=== PATIENT | male | born 1960 | race Two or more races ===

== ENCOUNTER → 2024-07-15 | Outpatient (CLI) | payer BC, SELFPAY ==
[2024-07-15 12:37] LABS: Prostate Specific Antigen < 0.10 ng/mL (0-4.00)
== END | disposition home or self-care (01) ==
LOC: COPL 10:57
PROVIDERS: PCP Nurse Practitioner Family; Referring Provider Urology; Visit Provider Urology
DX: C61 Malignant neoplasm of prostate (principal)
CPT/HCPCS: 36415; 84153

== ENCOUNTER → 2024-07-20 | Outpatient (BNVA) | payer BC, SELFPAY | END | disposition home or self-care (01) | PROVIDERS: PCP Nurse Practitioner Family; Referring Provider Nurse Practitioner Family; Visit Provider Urology | DX: C61 Malignant neoplasm of prostate (principal); N39.46 Mixed incontinence; N52.9 Male erectile dysfunction, unspecified; E11.9 Type 2 diabetes mellitus without complications; I10 Essential (primary) hypertension; E66.01 Morbid (severe) obesity due to excess calories; Z68.42 Body mass index [BMI] 45.0-49.9, adult; F17.290 Nicotine dependence, other tobacco product, uncomplicated | CPT/HCPCS: 99212; G0463 ==

== ENCOUNTER → 2024-09-04 | Outpatient (CLI) | payer BC, SELFPAY ==
[2024-09-04 13:14] LABS: B-Type Natriuretic Peptide < 20 pg/mL (0-100)
== END | disposition home or self-care (01) ==
PROVIDERS: PCP Nurse Practitioner Family; Referring Provider Internal Medicine Cardiovascular Disease; Visit Provider Internal Medicine Cardiovascular Disease
DX: I10 Essential (primary) hypertension (principal); I49.9 Cardiac arrhythmia, unspecified; E13.9 Other specified diabetes mellitus without complications; J45.20 Mild intermittent asthma, uncomplicated
CPT/HCPCS: 36415; 83880

== ENCOUNTER 2024-11-14 16:13 | Emergency (ER) | payer BC, SELFPAY ==
[2024-11-14 16:22] VITALS: BP 157/84; PULSE 135; RESP 24; TEMP 36.8; O2SAT 95
--- NOTE | 2024-11-14 16:29 | XR_ITS ---
Examination: AP chest single view Technique one AP portable upright chest single view Exam date and time: November 14, 2024 at 1651 hrs. Comparison January 04, 2008 Indication: Shortness of breath chest pain beginning 3 days ago. Findings: Early bibasilar pneumonia. No significant cardiac enlargement No pulmonary edema The osseous structures are intact Impression: Early bibasilar pneumonia.
--- NOTE | 2024-11-14 16:29 | EKG_ITS ---
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
--- NOTE | 2024-11-14 16:29 | PD.EDRME ---
Rapid Medical Screening Exam RME Arrival date/time: 11/14/24 16:13 CC: Palpitations and escalating blood pressure HPI patient noticed this approximately 2 to 3 hours ago. Patient denies any chest pain or shortness of breath. Initially patient's blood pressure is 15 7/84. Heart rate in the 135. Patient just had a left knee replaced at [facility] 4 days ago Chief Complaint: Recheck/Abnormal Lab/Rx Time Seen by Provider: 11/14/24 16:20 Vital signs: Vital Signs Temperature 98.3 F 11/14/24 16:22 Pulse Rate 135 H 11/14/24 16:22 Respiratory Rate 24 H 11/14/24 16:22 Blood Pressure 157/84 H 11/14/24 16:22 Pulse Oximetry (%) 95 11/14/24 16:22 Oxygen Delivery Method Room Air 11/14/24 16:22
[2024-11-14 16:51] LABS: Basophils # (Auto) 0.1 Thou/mm3 (0.0-0.2); Basophils % (Auto) 1 % (0-2.5); Eosinophils # (Auto) 0.2 Thou/mm3 (0.0-0.5); Eosinophils % (Auto) 2 % (0-10); Hematocrit 37.3 % (41.0-53.0); Hemoglobin 12.6 g/dL (13.5-16.0); Immature Granulocytes % (Auto) 0 % (0-0); Immature Granulocytes Auto 0.03 Thou/mm3 (0.00-0.00); Lymphocytes # (Auto) 1.2 Thou/mm3 (1.0-4.8); Lymphocytes % (Auto) 12 % (10-50); Mean Corpuscular HGB Conc 33.8 g/dl (31.0-37.0); Mean Corpuscular Volume 95 fL (80-100); Monocytes % (Auto) 10 % (0-12); Neutrophils # (Auto) 7.6 Thou/mm3 (1.8-7.7); Neutrophils % (Auto) 76 % (37-80); Nucleated Red Blood Cell % 0 /100 WBC (0); Platelet Count 222 Thou/mm3 (140-440); RDW Standard Deviation 49.6 fL (35.1-43.9); Red Blood Count 3.94 Miln/mm3 (4.50-5.90)
[2024-11-14 17:07] LABS: B-Type Natriuretic Peptide 84 pg/mL (0-100)
[2024-11-14 17:08] LABS: Alanine Aminotransferase 20 U/L (10-49); Albumin, Serum 3.9 gm/dL (3.4-4.8); Albumin/Globulin Ratio 1.8 (1.2-2.2); Alkaline Phosphatase 73 U/L (46-116); Anion Gap 9 (7-16); Aspartate Amino Transferase 12 U/L (0-34); BUN/Creatinine Ratio 14 Ratio (12-20); Bilirubin,Total 0.6 mg/dL (0.3-1.2); Blood Urea Nitrogen 10 mg/dL (9-23); Calcium 9.1 mg/dL (8.3-10.6); Calcium (Corrected) 9.2 mg/dL (8.5-10.1); Carbon Dioxide 24.9 mMol/L (20.0-31.0); Chloride 105 mMol/L (98-107); Creatinine (Component) 0.7 mg/dL (0.6-1.3); Globulin 2.2 gm/dL (2.3-3.5); Glucose 199 mg/dL (74-106); LDH (Lactate Dehydrogenase) 164 U/L (120-246); Magnesium 1.6 mg/dL (1.6-2.6); Osmolality,Calculated 282 (275-295); Potassium 3.9 mMol/L (3.4-5.1); Sodium 139 mMol/L (136-145); Total Protein 6.1 gm/dL (5.7-8.2); Troponin I < 0.002 ng/mL (0.0-0.045); eGFR > 60 See Note
[2024-11-14 17:11] LABS: Partial Thromboplastin Time 28.9 Seconds (22.0-36.0); Prothrombin Time 10.7 Seconds (9.0-12.2)
[2024-11-14 17:19] LABS: Collection Type, Urine Clean Catch
[2024-11-14 17:26] LABS: Bilirubin,Urine Negative (Negative); Blood,Urine Negative (Negative); Clarity,Urine Clear (Clear/Hazy); Color,Urine Yellow (Lt Yel-Yel); Glucose, Urine 2+ (Negative); Ketones,Urine 2+ (Negative); Leukocyte Esterase,Urine Negative (Negative); Nitrite,Urine Negative (Negative); Protein,Urine Trace (Neg - Trace); RBC,Urine 2 /hpf (0-3); Specific Gravity,Urine 1.023 (1.001-1.035); Squamous Epithelial Cell,Urine < 1 /hpf (0-5); Urobilinogen,Urine Negative mg/dL (0.0-1.0); WBC,Urine 27 /hpf (0-5)
[2024-11-14 17:33] LABS: Amphetamine/Methamp Scrn,U Negative (Negative); Barbiturate Screen,Urine Negative (Negative); Benzodiazepines Screen,Urine Negative (Negative); Benzoylecgonine Screen, Ur Negative (Negative); Fentanyl Screen,Urine Positive (Negative); Opiate Screen,Urine Positive (Negative); THC Screen,Urine Positive (Negative)
[2024-11-14 19:24] VITALS: BP 182/101; PULSE 110; RESP 20; TEMP 37.4; O2SAT 98
--- NOTE | 2024-11-14 19:42 | PD.EDADULT ---
ED General RME/HPI General Chief complaint: Recheck/Abnormal Lab/Rx Stated complaint: HIGH BP Time Seen by Provider: 11/14/24 16:20 Arrival date/time: 11/14/24 16:13 RME / HPI RME / HPI narrative: 64-year-old male patient with significant history of hypertension diabetes mellitus, came in for evaluation regarding elevated blood pressure. Onset of symptoms about 2 to 3 hours prior to ER visit, as elevated blood pressure, palpitation, severity moderate. Patient also complained of pain to the left knee, status post knee replacement 4 days ago in [place]. Patient denies any chest pain. Denies any fever denies any other complaints patient took Percocet around 2 PM today. Related Data Home Medications ?Medication ?Instructions ?Recorded ?Confirmed amlodipine 5 mg tablet (Norvasc) 5 mg PO QDAY 02/13/19 07/20/24 aspirin 81 mg tablet,delayed 81 mg PO QDAY 02/13/19 07/20/24 release metformin 1,000 mg tablet 1,000 mg PO BID 02/13/19 07/20/24 metoprolol succinate 50 mg 50 mg PO QDAY 02/13/19 07/20/24 tablet,extended release 24 hr (Toprol XL) montelukast 10 mg tablet 10 mg PO QPM 02/13/19 07/20/24 (Singulair) ramipril 10 mg capsule 10 mg PO QDAY 02/13/19 07/20/24 insulin glargine 100 unit/mL (3 10 unit subcut QAM 12/06/20 07/20/24 mL) subcutaneous pen (Lantus Solostar U-100 Insulin) celecoxib 200 mg capsule (Celebrex) 200 mg PO BID 01/19/22 07/20/24 semaglutide 7 mg tablet (Rybelsus) 7 mg PO QDAY 04/30/22 07/20/24 tadalafil 20 mg tablet (Cialis) 20 mg PO DIRECTED PRN 04/30/22 07/20/24 oxybutynin chloride 10 mg 10 mg PO QDAY 03/25/23 07/20/24 tablet,extended release 24 hr Previous Rx's ?Medication ?Instructions ?Recorded clonidine HCl 0.1 mg tablet 0.1 mg PO Q8H PRN hypertensive 11/14/24 emergency #20 tabs Allergies Allergy/AdvReac Type Severity Reaction Status Date / Time rubella virus live vaccine Allergy Mild Rash Verified 07/20/24 11:33 Penicillins Allergy Unknown RASH Verified 07/20/24 11:33 Review of Systems Review of Systems Narrative Review of Systems: Review of system reviewed and within normal limits except mentioned in HPI ED Exam Narrative Physical exam: VITAL SIGNS: Reviewed. GENERAL APPEARANCE: Alert and interactive, follows commands, no acute distress, HEAD AND FACE: Non-traumatic. ENT: PERRL, pink conjunctivitis, eyelid no trauma, Mucous membrane moist. NECK: Supple, nontender, no nuchal rigidity. CHEST: No tenderness, no crepitus, no paradoxical movement, no retractions. LUNGS: Clear, well ventilated, symmetric, no rales, no wheezing, no ronchi, no stridor, good breath sounds bilaterally. HEART: Regular rate, regular rhythm, no murmur, no gallops. ABDOMEN: Soft, positive bowel sounds, nondistended, no guarding, nontender, no rebound, no masses, RECTAL: Deferred. GENITAL: Deferred. NEUROLOGICAL: Gross motor function intact sensory function intact, Appropriate for age. MUSCULOSKELETAL: low back nontender, full range of motion. EXTREMITIES: Status post knee replacement, with dressing, clean dry and intact, no redness noted on the knee, with tenderness limited range of motion. SKIN: Color pink, dry, no rash, no lacerations, no abrasions, no contusions. LYMPHATICS: Deferred. Course Quality Measures none Orders Category Date Time Status EKG (ED ONLY) *Do not use* NOW Care 11/14/24 16:29 Completed EKG (ED Only) Stat Exams 11/14/24 16:29 Draft XR chest 1V Stat Exams 11/14/24 16:29 Completed B-Type Natriuretic Peptide Stat Lab 11/14/24 16:35 Completed CBC Stat Lab 11/14/24 16:35 Completed Comprehensive Metabolic Panel Stat Lab 11/14/24 16:35 Completed Drug Screen,Urine Stat Lab 11/14/24 16:56 Completed LDH (Lactate Dehydrogenase) Stat Lab 11/14/24 16:35 Completed Magnesium Stat Lab 11/14/24 16:35 Completed Partial Thromboplastin Time Stat Lab 11/14/24 16:35 Completed Prothrombin Time with INR Stat Lab 11/14/24 16:35 Completed Troponin I Stat Lab 11/14/24 16:35 Completed Urinalysis Stat Lab 11/14/24 16:56 Completed cloNIDine HCL [Catapres] Med 11/14/24 19:41 Discontinued 0.2 mg PO X1 ONE oxyCODONE/APAP 5/325 [Percocet 5/325] Med 11/14/24 19:41 Discontinued 1 tab PO X1 ONE Vital Signs Vital signs: Vital Signs Temperature 98.3 F 11/14/24 16:22 Pulse Rate 135 H 11/14/24 16:22 Respiratory Rate 24 H 11/14/24 16:22 Blood Pressure 157/84 H 11/14/24 16:22 Pulse Oximetry (%) 95 11/14/24 16:22 Oxygen Delivery Method Room Air 11/14/24 16:22 [facility] Patient data External records reviewed:: None Clinical information provided by:: patient Social determinants that could affect healthcare access:: none Patient has the following chronic illnesses:: Hypertension, diabetes mellitus How is presenting disease/condition affected by chronic disease/condition?: exacerbated by Evaluation data The following diagnostics were reviewed and interpreted by me:: lab results and radiology exam(s) Lab and/or radiology exams considered but not ordered:: None Interpretation Summary: See results in MDM Medications Medications considered but not ordered:: None Medication administrations:: Medication Administration History Discontinued Medications Clonidine (Clonidine Hcl 0.1 Mg Tablet) 0.2 mg PO X1 ONE Stop: 11/14/24 19:42 Last Admin: 11/14/24 19:48 Dose: 0.2 mg Documented By: ANNE-MARIE Oxycodone/Acetaminophen (Oxycodone/Apap 5/325 Tablet) 1 tab PO X1 ONE Stop: 11/14/24 19:42 Last Admin: 11/14/24 19:48 Dose: 1 tab Documented By: ANNE-MARIE Percocet and clonidine Consultations Consultation(s) initiated? (list below): No Diagnosis Differential Diagnosis ED Complaint MDM: Hypertension, knee pain, status post hip replacement Most likely diagnosis given after review of the tests above:: Hypertension, knee pain, status post hip replacement Admission Indicated Admission indicated?: not indicated Explain why admission is indicated or not indicated:: Stable Admission Request Was there a request for admission?: No Disposition Plan Disposition Plan: Discharge Discharge Attestation Discharge Attestation: The patient and all family members were given an opportunity to ask questions and understood the discharge instructions. Discharge instructions specifically effects, indications for sooner follow up or return to the emergency department, and the expected course of current diagnosis. Patient condition: Stable Medical Decision Making MDM Narrative MDM Narrative: 64-year-old male patient with significant history of hypertension diabetes mellitus, came in for evaluation regarding elevated blood pressure. Onset of symptoms about 2 to 3 hours prior to ER visit, as elevated blood pressure, palpitation, severity moderate. Patient also complained of pain to the left knee, status post knee replacement 4 days ago in [place]. Patient denies any chest pain. Denies any fever denies any other complaints patient took Percocet around 2 PM today. Patient's workup today all came back unremarkable. Patient EKG shows sinus tachycardia, ventricular rate of 115 bpm, peer interval 128 MS, QRS duration 92 MS, no ST segment elevation depression noted. Chest x-ray showed possible beginning pneumonia however patient told me that he is not having any cough he had no shortness of breath he had no chest pain. Patient received clonidine and Percocet in the emergency room, blood pressure was noted to be 157/91 with a heart rate of 110 prior to discharge. Differential Diagnosis Differential Diagnosis: Hypertension, knee pain, status post hip replacement Lab Data 11/14/24 16:35 11/14/24 16:35 Labs: Lab Results 11/14/24 11/14/24 Range/Units 16:35 16:56 WBC 10.0 (3.8-10.6) Thou/mm3 RBC 3.94 L (4.50-5.90) Miln/mm3 Hgb 12.6 L (13.5-16.0) g/dL Hct 37.3 L (41.0-53.0) % MCV 95 (80-100) fL MCH 32.0 (25.0-35.0) pg MCHC 33.8 (31.0-37.0) g/dl RDW Std Deviation 49.6 H (35.1-43.9) fL Plt Count 222 (140-440) Thou/mm3 Neut % (Auto) 76 (37-80) % Lymph % (Auto) 12 (10-50) % [place] % (Auto) 10 (0-12) % Eos % (Auto) 2 (0-10) % Baso % (Auto) 1 (0-2.5) % Neut # (Auto) 7.6 (1.8-7.7) Thou/mm3 Lymph # (Auto) 1.2 (1.0-4.8) Thou/mm3 [place] # (Auto) 1.0 H (0.0-0.8) Thou/mm3 Eos # (Auto) 0.2 (0.0-0.5) Thou/mm3 Baso # (Auto) 0.1 (0.0-0.2) Thou/mm3 Immature Gran # (Auto) 0.03 H (0.00-0.00) Thou/mm3 Absolute Nucleated RBC 0.00 (0.00-0.00) Thou/mm3 Immature Gran % 0 (0-0) % Nucleated RBC % 0 (0) /100 WBC PT 10.7 (9.0-12.2) Seconds INR 1.0 (0.9-1.3) APTT 28.9 (22.0-36.0) Seconds Sodium 139 (136-145) mMol/L Potassium 3.9 (3.4-5.1) mMol/L Chloride 105 (98-107) mMol/L Carbon Dioxide 24.9 (20.0-31.0) mMol/L Anion Gap 9 (7-16) BUN 10 (9-23) mg/dL Creatinine 0.7 (0.6-1.3) mg/dL Estim Creat Clear Calc Not Performed. eGFR > 60 (60 - ) See Note BUN/Creatinine Ratio 14 (12-20) Ratio Glucose 199 H (74-106) mg/dL Calculated Osmolality 282 (275-295) Calcium 9.1 (8.3-10.6) mg/dL Corrected Calcium 9.2 (8.5-10.1) mg/dL Magnesium 1.6 (1.6-2.6) mg/dL Total Bilirubin 0.6 (0.3-1.2) mg/dL AST 12 (0-34) U/L ALT 20 (10-49) U/L Alkaline Phosphatase 73 (46-116) U/L Lactate Dehydrogenase 164 (120-246) U/L Troponin I < 0.002 (0.0-0.045) ng/mL B-Natriuretic Peptide 84 (0-100) pg/mL Total Protein 6.1 (5.7-8.2) gm/dL Albumin 3.9 (3.4-4.8) gm/dL Globulin 2.2 L (2.3-3.5) gm/dL Albumin/Globulin Ratio 1.8 (1.2-2.2) Ur Collection Type Clean Catch Urine Color Yellow (Lt Yel-Yel) Urine Clarity Clear (Clear/Hazy) Urine pH 6.0 (5.0-7.0) Ur Specific [place] 1.023 (1.001-1.035) Urine Protein Trace (Neg - Trace) Urine Glucose (UA) 2+ A (Negative) Urine Ketones 2+ A (Negative) Urine Blood Negative (Negative) Urine Nitrite Negative (Negative) Urine Bilirubin Negative (Negative) Urine Urobilinogen (Auto) Negative (0.0-1.0) mg/dL Ur Leukocyte Esterase Negative (Negative) Urine RBC 2 (0-3) /hpf Urine WBC 27 H (0-5) /hpf Ur Squamous Epith Cells < 1 (0-5) /hpf Urine Bacteria None (None) Urine Opiates Screen Positive A (Negative) Urine Fentanyl Screen Positive A (Negative) Ur Barbiturates Screen Negative (Negative) U Amphetamin/Meth Scrn Negative (Negative) U Benzodiazepines Scrn Negative (Negative) U Cocaine Metab Screen Negative (Negative) U Marijuana (THC) Screen Positive A (Negative) Discharge Plan Plan Patient Disposition: HOME (Self Care) Disposition Comment: Stable Prescriptions/Referrals Prescriptions/Med Rec: New clonidine HCl 0.1 mg tablet 0.1 mg PO Q8H PRN (Reason: hypertensive emergency) Qty: 20 0RF Rx Instructions: Take clonidine 1 tablet every 8 hours if blood pressure above 180 systolic over 100 despite taking all your blood pressure medications. No Action metformin 1,000 mg tablet 1,000 mg PO BID metoprolol succinate [Toprol XL] 50 mg tablet extended release 24 hr 50 mg PO QDAY montelukast [Singulair] 10 mg tablet 10 mg PO QPM ramipril 10 mg capsule 10 mg PO QDAY amlodipine [Norvasc] 5 mg tablet 5 mg PO QDAY aspirin 81 mg tablet,delayed release (DR/EC) 81 mg PO QDAY Lantus Solostar U-100 Insulin 100 unit/mL (3 mL) insulin pen 10 unit subcut QAM Rybelsus 7 mg tablet 7 mg PO QDAY tadalafil [Cialis] 20 mg tablet 20 mg PO DIRECTED PRN Patient Comments: twice a week Rx Instructions: administer approximately 30min before sexual activity; do not use more than 1 dose per 24hrs celecoxib [Celebrex] 200 mg capsule 200 mg PO BID oxybutynin chloride 10 mg tablet extended release 24hr 10 mg PO QDAY Referrals: No Primary/Family,Physician [Primary Care Provider] - In 1 week Problem List Clinical Impression: Hypertension, Status post knee replacement Patient/Caregiver Discharge Instructions Discharge Activity: activity as tolerated Education Materials: ED Hypertension, Established Additional Instructions: Thank you for the opportunity for serving you today. You are stable for discharged . You are advised to: Follow-up with your PCP in 1 to 2 days Return to ED for worsening of symptoms Increase oral fluids Take medication as prescribed as needed Print Language: Syrian Stand Alone Forms: Izzy Award Info., Patient Portal Info Letter
[2024-11-14 19:48] VITALS: BP 182/101; PULSE 110
[2024-11-14] MEDS: oxyCODONE/APAP 5/325 TABLET 1 TAB PO (19:48)
[2024-11-14] MEDS: cloNIDine HCL 0.1 MG TABLET 0.2 MG PO (19:48)
[2024-11-14 20:41] VITALS: BP 157/91
== END 2024-11-14 21:01 | disposition home or self-care (01) ==
PROVIDERS: Registered Nurse General Practice; Emergency Provider Emergency Medicine
DX: I10 Essential (primary) hypertension (principal); Z96.659 Presence of unspecified artificial knee joint; E11.9 Type 2 diabetes mellitus without complications
CPT/HCPCS: 36415; 71045; 80053; 80307; 81001; 83615; 83735; 83880; 84484; 85025; 85610; 85730; 93005; 99283; A9270

== ENCOUNTER → 2025-01-12 | Outpatient (CLI) | payer BC, SELFPAY ==
[2025-01-12 14:29] LABS: Prostate Specific Antigen < 0.10 ng/mL (0-4.00)
== END | disposition home or self-care (01) ==
PROVIDERS: PCP Urology; Referring Provider Urology; Visit Provider Urology
DX: C61 Malignant neoplasm of prostate (principal)
CPT/HCPCS: 36415; 84153

== ENCOUNTER → 2025-03-22 | Outpatient (BNVA) | payer MEDICARE, BC, SELFPAY | END | disposition home or self-care (01) | PROVIDERS: PCP Nurse Practitioner Family; Referring Provider Nurse Practitioner Family; Visit Provider Urology | DX: C61 Malignant neoplasm of prostate (principal); N39.46 Mixed incontinence; N52.9 Male erectile dysfunction, unspecified; E11.9 Type 2 diabetes mellitus without complications; I10 Essential (primary) hypertension; E66.01 Morbid (severe) obesity due to excess calories; Z68.42 Body mass index [BMI] 45.0-49.9, adult; F17.210 Nicotine dependence, cigarettes, uncomplicated | CPT/HCPCS: 81003; 99212; G0463 ==